=== PATIENT | male | born 1990 ===

== ENCOUNTER 2018-04-01 18:24 | Emergency (ER) | payer OTHER ==
[2018-04-01 19:04] VITALS: O2SAT 99
[2018-04-01] MEDS ORDERED: Sodium Chloride 0.9% 1,000 ML IV STA (19:12)
[2018-04-01 19:39] LABS: BASO # 0.1 K/uL (0.0-0.2); EOS # 0.2 K/uL (0.0-0.7); EOS % 3.8 % (0.0-4.0); LYMPH # 1.8 K/uL (1.0-4.3); LYMPH % 34.5 % (20.0-40.0); MEAN CORPUSCULAR HEMOGLOBIN 31.3 pg (27.0-31.0); MEAN CORPUSCULAR HGB CONC 33.7 g/dL (33.0-37.0); MONO # 0.7 K/uL (0.0-0.8); MONO % 12.4 % (0.0-10.0); NEUT # 2.6 K/uL (1.8-7.0); NEUT % 48.3 % (50.0-75.0); NRBC % 0.1 % (0.0-0.0); RBC 5.12 Mil/uL (4.40-5.90); RED CELL DISTRIBUTION WIDTH 12.9 % (11.5-14.5); WHITE BLOOD COUNT 5.3 K/uL (4.8-10.8)
[2018-04-01 19:49] LABS: PARTIAL THROMBOPLASTIN TIME 32.7 Seconds (25.6-37.1); PROTHROMBIN TIME 10.5 Seconds (9.8-13.1)
[2018-04-01] MEDS ORDERED: Sodium Chloride 0.9% 50 ML IV ONE (19:51)
[2018-04-01] MEDS ORDERED: Iohexol 300 100 ML IJ ONE (19:51)
[2018-04-01 20:01] LABS: BLOOD UREA NITROGEN 14 mg/dl (9-20); GFR AFRICAN-AMERICAN > 60; GFR NON-AFRICAN AMERICAN > 60
[2018-04-01 20:02] LABS: ALB/GLOB RATIO 1.3 (1.0-2.1); ALBUMIN 4.7 g/dL (3.5-5.0); ALT/SGPT 43 U/L (21-72); AST/SGOT 33 U/L (17-59); CALCIUM 9.5 mg/dL (8.4-10.2)
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
[2018-04-01 22:20] VITALS: BP 124/68; PULSE 74; RESP 16; TEMP 98.4
--- NOTE | 2018-04-02 10:00 | RAD ---
HISTORY: R sided chest pain COMPARISON: No prior. FINDINGS: LUNGS: No active pulmonary disease. PLEURA: No significant pleural effusion identified, no pneumothorax apparent. CARDIOVASCULAR: Normal. OSSEOUS STRUCTURES: No significant abnormalities. VISUALIZED UPPER ABDOMEN: Normal. OTHER FINDINGS: None. IMPRESSION: No active disease.
--- NOTE | 2018-04-02 11:49 | CT ---
PROCEDURE: CT Chest, Abdomen and Pelvis with intravenous contrast HISTORY: RUQ, R sided chest pain COMPARISON: None. TECHNIQUE: IV dose administered: Radiation dose: Total exam DLP = 707.64 mGy-cm. This CT exam was performed using one or more of the following dose reduction techniques: Automated exposure control, adjustment of the mA and/or kV according to patient size, and/or use of iterative reconstruction technique. FINDINGS: CT CHEST WITH CONTRAST: LUNGS: Mild passive/ dependent type atelectasis both posterior lower lung erickson. No focal consolidation. Small calcified granuloma right anterolateral middle lobe near the pleural surface. . There is a small approximately 5 mm subpleural nodular density posterior aspect right lung apex/upper lobe junction. Followup CT scan of the chest could be performed in 6 months to assess stability. . MEDIASTINUM: Heart size is within range of normal. No significant pericardial effusion. Ascending thoracic aorta measures approximately 3.0 cm descending thoracic aorta measures approximately 2.3 cm. Pulmonary trunk measures approximately 2.8 cm. There is a small hiatal hernia with slight wall thickening of the distal esophagus likely due to protrusion of gastric mucosa. Esophagitis or other intrinsic wall lesion not excluded Central airways midline and patent. No large central endoluminal lesions. LYMPH NODES: Several small nonspecific mediastinal lymph nodes are present. No significant mediastinal adenopathy. PLEURA: Unremarkable. No pneumothorax. No pleural fluid. BONES: No acute compression fractures no retropulsed fragments. Vertebral bodies exhibit normal stature. Vertebral bodies and facets normally aligned. Normal mineralization. . OTHER FINDINGS: None. CT ABDOMEN AND PELVIS: LIVER: Liver is upper limits of normal/borderline enlarged measuring over 18 cm in CC dimension. . No obvious hepatic masses collections or calcifications. Portal and splenic veins are opacified. GALLBLADDER AND BILE DUCTS: Gallbladder appears incompletely distended likely due to nonfasting state which presumably accounts for thick-walled appearance. Correlation with gallbladder ultrasound recommended. No evidence of intraluminal gallbladder calculi. PANCREAS: Unremarkable. No gross lesion or ductal dilatation. SPLEEN: Unremarkable. ADRENALS: No adrenal lesions. KIDNEYS AND URETERS: Kidneys demonstrate symmetric nephrograms. No evidence of nephrolithiasis or hydronephrosis. VASCULATURE: Unremarkable. No aortic aneurysm. BOWEL: Evaluation bowel limited due to the lack of oral contrast material. Stomach is distended with food debris liquid and air. There are several of loops of prominent of fluid-filled proximal small bowel (transverse portion of the duodenum and proximal jejunum) some of which exhibit minimal wall thickening. Rule out enteritis. Moderate amount of stool seen throughout the cecum ascending, transverse and rectosigmoid colon consistent with fecal retention/ constipation. APPENDIX: What appears represent incompletely visualized normal appendix is seen on axial image number [id number] and again on sagittal image number [id number]. No periappendiceal inflammatory changes. PERITONEUM: Unremarkable. No free fluid. No free air. LYMPH NODES: Unremarkable. No enlarged lymph nodes. BLADDER: Urinary bladder is physiologically distended. No evidence of intraluminal urinary bladder calculi. . REPRODUCTIVE: Unremarkable. BONES: No acute fracture. OTHER FINDINGS: None. IMPRESSION: Small calcified granuloma right middle lobe. . Small approximately 5 mm subpleural nodule right posterior lung apex apex-upper lobe junction. . Followup the CT scan in 6 months could be performed to assess. There are several of loops of prominent minimally distended small bowel minimal wall thickening. Rule out enteritis. . Findings consistent with constipation. Contracted gallbladder likely due to nonfasting state which presumably accounts for thick-walled appearance however correlation with gallbladder ultrasound could be performed confirm and exclude inflammatory process.
== END 2018-04-01 22:19 | disposition home or self-care (01) ==
LOC: H.ER 18:24
DX: S20.219A Contusion of unspecified front wall of thorax, initial encounter (principal); W19.XXXA Unspecified fall, initial encounter; Y93.55 Activity, bike riding
CPT/HCPCS: 71045; 71260; 74177; 80053; 85025; 85610; 85730; 86850; 86900; 96361; 96374; 99282; J2270; J7030; Q9967